=== PATIENT | male | born 2000 | race Caucasian/White ===

== ENCOUNTER 2020-02-29 18:49 | Emergency (ER) | payer BC, OTHER | END 2020-02-29 20:38 | disposition home or self-care (01) | LOC: JVIRT 18:49 | DX: Z20.822 Contact with and (suspected) exposure to COVID-19 (principal) | CPT/HCPCS: C9803; Q3014-GT; U0003 ==

== ENCOUNTER 2020-03-08 11:42 | Emergency (ER) | payer BC, OTHER | END 2020-03-08 13:50 | disposition home or self-care (01) | LOC: JVIRT 11:42 | DX: Z11.52 Encounter for screening for COVID-19 (principal) | CPT/HCPCS: 99283-25; Q3014-GT ==

== ENCOUNTER 2020-03-09 14:27 | Emergency (ER) | payer BC, OTHER | END 2020-03-09 15:46 | disposition home or self-care (01) | LOC: JVIRT 14:27 | DX: Z20.822 Contact with and (suspected) exposure to COVID-19 (principal) | CPT/HCPCS: C9803; G2012-GT; U0003 ==

== ENCOUNTER 2020-03-13 13:22 | Emergency (ER) | payer BC, OTHER | END 2020-03-13 17:02 | disposition home or self-care (01) | LOC: JVIRT 13:22 | DX: U07.1 COVID-19 (principal) | CPT/HCPCS: C9803; G2012-GT; U0003 ==